=== PATIENT | female | born 1960 | race African-American/Black ===

== ENCOUNTER 2020-01-20 07:44 | Inpatient (IN) | payer BC, OTHER ==
[~2020-01-20] VITALS: Ht 170.2 cm; Wt 134.3 kg
--- NOTE | 2020-01-20 07:44 | NUR ---
PT BIB SELF C/O SOB, 02 SAT 78% ON RA. PT IS AAXO4, NOTED RESPIRATORY DISTRESS, HOOKED TO 02 VIA NC AT 3LPM AND STEM SIZER, KEPT RESTED AND COMFORTABLE, WILL CONTINUE TO MONITOR.
--- NOTE | 2020-01-20 07:45 | NUR ---
SEEN AND EXAMINED BY .
[2020-01-20] MEDS ORDERED: methylPREDNISolone SOD SUCC 125 MG/2ML VIAL ONE (07:49)
[2020-01-20] MEDS ORDERED: Magnesium 1GM/D5W 100ML PREMIX 200 ML IV ONE ×2 (07:49→07:57)
--- NOTE | 2020-01-20 07:50 | NUR ---
IV LINE ESTABLISHED L AC G18.
[2020-01-20] MEDS ORDERED: ALBUTEROL FS 2.5 MG/3 ML VIAL.NEB ONE ×2 (07:51→09:08)
[2020-01-20] MEDS ORDERED: IPRATROPIUM NEB FS 0.5 MG/2.5 ML AMPUL.NEB ONE ×2 (07:52→09:08)
--- NOTE | 2020-01-20 07:55 | NUR ---
RT AT BEDSIDE FOR BREATHING TREATMENT.
[2020-01-20] MEDS ORDERED: IPRATROPIUM NEB FS 0.5 MG/2.5 ML AMPUL.NEB NEB ONE ×2 (08:00→10:30)
[2020-01-20] MEDS ORDERED: methylPREDNISolone SOD SUCC 125 MG/2ML VIAL IV ONE (08:00)
[2020-01-20] MEDS ORDERED: ALBUTEROL FS 2.5 MG/3 ML VIAL.NEB CONTNEB ONE ×2 (08:00→10:30)
--- NOTE | 2020-01-20 08:07 | NUR ---
ER PHLEB AT BEDSIDE FOR BLOOD DRAW.
--- NOTE | 2020-01-20 08:15 | NUR ---
RADIO PROGRAM CHECKER AT BEDSIDE FOR XRAY.
[2020-01-20 08:35] LABS: BASOPHILS # (AUTO) 0.1 /CMM (0.0-0.2); BASOPHILS % (AUTO) 0.7 % (0.0-2.0); EOSINOPHILS % (AUTO) 2.2 % (0.0-6.0); HEMATOCRIT 43 % (33-45); HEMOGLOBIN 13.8 g/dL (11.5-14.8); LYMPHOCYTES % (AUTO) 23.1 % (20.0-44.0); MEAN CORPUSCULAR HGB CONC 32 g/dl (31.0-36.0); MEAN CORPUSCULAR VOLUME 93 fL (82-100); MONOCYTES # (AUTO) 0.7 /CMM (0.1-1.30); MONOCYTES % (AUTO) 8.6 % (2.0-12.0); NEUTROPHILS # (AUTO) 5.6 /CMM (1.8-8.9); NEUTROPHILS % (AUTO) 65.4 % (43.0-81.0); PLATELET COUNT (AUTO) 202 /CMM (150-450); RED BLOOD CELL COUNT(AUTO) 4.57 MIL/uL (4.0-5.2); WHITE BLOOD COUNT (AUTO) 8.6 K/uL (4.3-11.0)
--- NOTE | 2020-01-20 08:35 | NUR ---
RAPID INFLUENZA AND COVID SWAB OBTAINED AND SENT TO LAB
[2020-01-20 08:40] LABS: CALCIUM, SERUM 9.3 mg/dL (8.5-10.1); CARBON DIOXIDE 25 mmol/L (21-32); CHLORIDE 102 mmol/L (98-107); CREATININE 1.1 mg/dL (0.6-1.3); GLUCOSE 141 mg/dL (74-106); POTASSIUM 4.1 mmol/L (3.5-5.1); SODIUM SERUM 138 mmol/L (136-145); UREA NITROGEN, BLOOD 10 mg/dL (7-18)
[2020-01-20 08:45] LABS: ALANINE AMINOTRANSFERASE 22 U/L (12-78); ALBUMIN 3.8 g/dL (3.4-5.0); ALKALINE PHOSPHATASE 73 U/L (46-116); ASPARTATE AMINOTRANSFERASE 24 U/L (15-37); BILIRUBIN,DIRECT 0.1 mg/dL (0.0-0.2); BILIRUBIN,TOTAL 0.6 mg/dL (0.2-1.0); TOTAL PROTEIN, SERUM 8.7 g/dL (6.4-8.2)
[2020-01-20] MEDS ORDERED: TERBUTALINE SULFATE 1 MG/ML VIAL ONE (08:48)
[2020-01-20] MEDS ORDERED: TERBUTALINE SULFATE 1 MG/ML VIAL SQ ONE (09:00)
--- NOTE | 2020-01-20 09:50 | NUR ---
REPORT GIVEN TO MAYANK KELLOGG FOR [facility].
--- NOTE | 2020-01-20 10:28 | NUR ---
Malorie kessler in [facility] - 01/20/20 at 1029 by AMARA CHANTEL QUIROZ AT BEDSIDE FOR EVAL.
[2020-01-20] MEDS ORDERED: IV NS 0.9% 1,000 ML BAG IV ONE (10:30)
[2020-01-20 12:00] VITALS: BP 126/68
[2020-01-20] MEDS: PANTOPRAZOLE 40 MG VIAL IV SCH (12:25)
[2020-01-20] MEDS: ENOXAPARIN SODIUM 40 MG/0.4 ML DISP.SYRIN SQ SCH (12:26)
[2020-01-20] MEDS ORDERED: IPRATROPIUM BROMIDE 14 GM INHALER (or 12.9 GM) IH PRN (12:30)
[2020-01-20] MEDS ORDERED: ALBUTEROL SULFATE 8 GM HFA.AER.AD IH PRN (12:30)
[2020-01-20] MEDS ORDERED: TEMAZEPAM 15 MG CAPSULE PO PRN (13:00)
[2020-01-20] MEDS: CEFTRIAXONE 1 G in IV D5W 50 ML IV SCH (13:18)
[2020-01-20] MEDS ORDERED: LOSA100T31 PO (14:03)
[2020-01-20] MEDS ORDERED: METO25TA20 PO (14:03)
[2020-01-20] MEDS ORDERED: METF-440 PO (14:03)
--- NOTE | 2020-01-20 14:59 | NUR ---
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 Yo Valencia RN
[2020-01-20] MEDS: methylPREDNISolone SOD SUCC 40 MG/ML VIAL IV SCH ×2 (15:02→23:56)
[2020-01-20 16:00] VITALS: BP 129/67
[2020-01-20] MEDS: ALBUTEROL SULFATE 8 GM HFA.AER.AD IH SCH ×2 (17:24→23:56)
[2020-01-20] MEDS: IPRATROPIUM BROMIDE 14 GM INHALER (or 12.9 GM) IH SCH ×2 (17:25→23:39)
[2020-01-20 20:00] VITALS: BP 140/93
[2020-01-20] MEDS: METOPROLOL TARTRATE 25 MG TABLET PO SCH (21:04)
[2020-01-21] VITALS: BP 141/78
[2020-01-21 04:00] VITALS: BP 147/98
[2020-01-21] MEDS: ALBUTEROL SULFATE 8 GM HFA.AER.AD IH SCH ×4 (05:41→23:08)
[2020-01-21] MEDS: IPRATROPIUM BROMIDE 14 GM INHALER (or 12.9 GM) IH SCH ×4 (05:41→23:12)
[2020-01-21 06:48] LABS: BASOPHILS % (AUTO) 0.1 % (0.0-2.0); EOSINOPHILS % (AUTO) 0.1 % (0.0-6.0); HEMATOCRIT 38 % (33-45); HEMOGLOBIN 12.5 g/dL (11.5-14.8); LYMPHOCYTES # (AUTO) 0.7 /CMM (0.8-4.8); MEAN CORPUSCULAR HGB CONC 33 g/dl (31.0-36.0); MEAN CORPUSCULAR VOLUME 90 fL (82-100); MONOCYTES # (AUTO) 0.4 /CMM (0.1-1.30); MONOCYTES % (AUTO) 2.4 % (2.0-12.0); NEUTROPHILS # (AUTO) 13.7 /CMM (1.8-8.9); NEUTROPHILS % (AUTO) 92.4 % (43.0-81.0); PLATELET COUNT (AUTO) 212 /CMM (150-450); RED BLOOD CELL COUNT(AUTO) 4.22 MIL/uL (4.0-5.2); WHITE BLOOD COUNT (AUTO) 14.8 K/uL (4.3-11.0)
[2020-01-21 06:50] LABS: CALCIUM, SERUM 9.6 mg/dL (8.5-10.1); MAGNESIUM 2.1 mg/dL (1.8-2.4); POTASSIUM 4.7 mmol/L (3.5-5.1)
--- NOTE | 2020-01-21 07:20 | NUR ---
RN opening note: Patient received in bed. Awake, alert and oriented x4. Able to make needs known. On contact isolation for R/O Covid with Shortness of Breath noted but not in respiratory distress. Patient with hx of asthma and dx of asthma exacerbation. On cont. o2 via NC @ 4lpm at 96%. Tele monitoring showing sinus rhythm. No pain reported by patient. IV site clean, dry, patent and intact. call light in reach. Bed locked, low and at semi-vang's position. side rails up x3. safety ensured and observed. will continue to monitor.
[2020-01-21 08:00] VITALS: BP 118/72
[2020-01-21] MEDS: PANTOPRAZOLE 40 MG VIAL IV SCH (08:45)
[2020-01-21] MEDS: methylPREDNISolone SOD SUCC 40 MG/ML VIAL IV SCH ×3 (08:45→23:02)
[2020-01-21] MEDS: METOPROLOL TARTRATE 25 MG TABLET PO SCH (09:05)
[2020-01-21] MEDS: ENOXAPARIN SODIUM 40 MG/0.4 ML DISP.SYRIN SQ SCH (09:07)
--- NOTE | 2020-01-21 09:30 | NUR ---
rn note: patient still on cont. o2 via nc @ 96% with no respiratory distress noted.
[2020-01-21] MEDS: IV NS 0.9% 1,000 ML IV PRN (10:45)
[2020-01-21 11:06] LABS: THYROID STIMULATING HORMONE 0.972 uIU/mL (0.358-3.74)
[2020-01-21 12:00] VITALS: BP 128/66
[2020-01-21] MEDS: CEFTRIAXONE 1 G in IV D5W 50 ML IV SCH (13:34)
[2020-01-21 16:00] VITALS: BP 137/87
--- NOTE | 2020-01-21 19:00 | NUR ---
RN CLOSING NOTE: Patient still in bed. Awake, alert and oriented x4. Able to make needs known. Appears relaxed and calm. Patient with hx of asthma and dx of asthma exacerbation. On cont. o2 via NC @ 4lpm at 99% being tolerated well. Tele monitoring showing sinus rhythm. No pain reported by patient. IV site clean, dry, patent and intact. Call light in reach. Bed locked, low and at semi-vang's position. side rails up x3. safety ensured and observed. Endorsed to oncoming shift for [facility]ULU.
--- NOTE | 2020-01-21 19:15 | NUR ---
client relations representative opening notes Received Pt from morning nurse. Pt is alert and orientedX4. Pt is sitting in bed comfortably watching TV. Respiration is normal in 2 L NC. O2 sat is 98%. Tele monitor showed SR HR @ 70 bpm. IV sites at R Hand# 20 is clean, intact, patent and infusing well NS@ 70 ml/hr. Safety precautions is maintained. Bed at low position, brakes locked, side railsupX2, HOB elevated and call light is within reach. Will Continue to monitor.
[2020-01-21 20:00] VITALS: BP_SYST 146; BP_DIAS 83; BP_DIAS 93
--- NOTE | 2020-01-21 20:31 | NUR ---
admission nurse coordinator notes Pt is complaining of headache. Informed and contacted Dr. Yuen. order tylenol 650 mg/po/Q6/PRN for headache and mild pain. BP 146/83 pulse 67. Order carried out. Charge nurse is aware and informed.
--- NOTE | 2020-01-21 20:41 | NUR ---
sensor operator notes Pt is complaining of headache. Administered tylenol 650 mg/po/prn for headache as ordered. Will continue to monitor.
[2020-01-21] MEDS ORDERED: ACETAMINOPHEN 325 MG TABLET PO PRN (21:00)
[2020-01-22] VITALS (8 sets, daily range): BP systolic 136–155; BP diastolic 72–97
--- NOTE | 2020-01-22 00:20 | NUR ---
epic anesthesia analyst notes Report given to MAYANK Weir.
--- NOTE | 2020-01-22 00:30 | NUR ---
facilities maintenance assistant notes Transferred Pt to room 306-2 with ACLS protocol.
--- NOTE | 2020-01-22 00:34 | NUR ---
PATIENT ARRIVED FROM [facility], AWAKE A/O X4, NO COMPLAIN OF PAIN. NO SOB NOTED. HOB ELEVATED AT 30 DEGREES AT ALL TIMES. CALL LIGHT WITHIN REACH. BED IN LOWEST AND LOCKED POSITION. WITH O2 AT 4L/MIN.
[2020-01-22] MEDS: IV NS 0.9% 1,000 ML IV PRN (05:34)
[2020-01-22] MEDS: IPRATROPIUM BROMIDE 14 GM INHALER (or 12.9 GM) IH SCH (05:35)
[2020-01-22] MEDS: ALBUTEROL SULFATE 8 GM HFA.AER.AD IH SCH (05:35)
--- NOTE | 2020-01-22 06:30 | NUR ---
RN CLOSING NOTES: PATIENT AMBULATED TO THE BATHROOM,STEADY. NO COMPLAIN OF SOB AND PAIN. RESTED THROUGHOUT THE NIGHT. CALL LIGHT WITHIN REACH. BED IN LOWEST AND LOCKED POSITION.
--- NOTE | 2020-01-22 07:30 | NUR ---
Tele/RN Opening note Received patient in bed, AO x 4, able to responds all stimuli. Pt does no complain of pain or any discomfort, skin is warm to touch, kept clean/dry, intact IV site. Respiratory even and unlabored with oxygen at 4LPM, O2sat 96%. Keep lower position of the bed with locked wheel and elevated HOB. Call light within reach. Will continue to monitor.
[2020-01-22 08:06] LABS: *SPE A/G RATIO 0.7 (0.7-1.7); *SPE ALPHA-1-GLOBULIN 0.2 g/dL (0.0-0.4); *SPE ALPHA-2-GLOBULIN 0.8 g/dL (0.4-1.0); *SPE BETA GLOBULIN 1.4 g/dL (0.7-1.3); *SPE GLOBULIN, TOTAL 4.4 g/dL (2.2-3.9); *SPE M-SPIKE Not Observed g/dL (Not Observed)
[2020-01-22] MEDS: methylPREDNISolone SOD SUCC 40 MG/ML VIAL IV SCH ×2 (08:31→21:58)
[2020-01-22] MEDS: PANTOPRAZOLE 40 MG VIAL IV SCH (08:31)
[2020-01-22] MEDS: ENOXAPARIN SODIUM 40 MG/0.4 ML DISP.SYRIN SQ SCH (08:31)
[2020-01-22 08:47] LABS: ALBUMIN 3.2 g/dL (3.4-5.0); BILIRUBIN,TOTAL 0.5 mg/dL (0.2-1.0); CREATININE 1.2 mg/dL (0.6-1.3); MAGNESIUM 2.3 mg/dL (1.8-2.4); PHOSPHORUS 3.2 mg/dL (2.5-4.9); POTASSIUM 4.5 mmol/L (3.5-5.1); TOTAL PROTEIN, SERUM 7.7 g/dL (6.4-8.2)
[2020-01-22 09:01] LABS: BASOPHILS # (AUTO) 0.1 /CMM (0.0-0.2); BASOPHILS % (AUTO) 0.3 % (0.0-2.0); HEMATOCRIT 39 % (33-45); HEMOGLOBIN 12.3 g/dL (11.5-14.8); LYMPHOCYTES # (AUTO) 0.8 /CMM (0.8-4.8); LYMPHOCYTES % (AUTO) 4.5 % (20.0-44.0); MEAN CORPUSCULAR HGB CONC 32 g/dl (31.0-36.0); MEAN CORPUSCULAR VOLUME 91 fL (82-100); MONOCYTES # (AUTO) 0.5 /CMM (0.1-1.30); MONOCYTES % (AUTO) 2.5 % (2.0-12.0); NEUTROPHILS % (AUTO) 92.7 % (43.0-81.0); PLATELET COUNT (AUTO) 212 /CMM (150-450); RED BLOOD CELL COUNT(AUTO) 4.23 MIL/uL (4.0-5.2); WHITE BLOOD COUNT (AUTO) 18.3 K/uL (4.3-11.0)
[2020-01-22] MEDS: PANTOPRAZOLE 40 MG TABLET.DR PO SCH (11:24)
[2020-01-22] MEDS: DILTIAZEM HCL CD 240 MG PO SCH (11:25)
[2020-01-22] MEDS ORDERED: FUROSEMIDE 20 MG/2 ML VIAL IV ONE (13:00)
[2020-01-22] MEDS: CEFTRIAXONE 1 G in IV D5W 50 ML IV SCH (13:10)
[2020-01-22] MEDS ORDERED: IPRATROPIUM NEB FS 0.5 MG/2.5 ML AMPUL.NEB NEB PRN (14:30)
[2020-01-22] MEDS ORDERED: ALBUTEROL FS 2.5 MG/3 ML VIAL.NEB NEB PRN (14:30)
--- NOTE | 2020-01-22 18:30 | NUR ---
Tele/RN Closing note Patient sitting the chair watching TV, does no c/o pain, but consider about inhaler, explained pharmacy bring at 1930. Skin is warm to touch, kept clean/dry, intact IV site, respiratory even and unlabored at 4LPM oxygen. Call light within reach, will endorse bank boss.
--- NOTE | 2020-01-22 19:42 | NUR ---
MS RN RECEIVE PT A/O X 3, STABLE AND NOT IN DISTRESS, RESPIRATIONS EVEN AND UNLABORED. SAFETY MEASURES AT ALL TIMES. WILL CONT TO MONITOR
--- NOTE | 2020-01-22 22:00 | NUR ---
MS RN PT C/O UPSET PT LOOKING FOR HER INHALERS, PER PT DAY SHIFT RN TOOK IT OUT FROM HER BEDSIDE. CHARGE NURSE AWARE. EXPLAINED ITS DC'D. VERBALIZED UNDERSTANDING PTS WANTS HER BREATHING TREATMENT
[2020-01-23] MEDS: ALBUTEROL FS 2.5 MG/3 ML VIAL.NEB NEB SCH ×3 (01:51→12:16)
[2020-01-23] MEDS: IPRATROPIUM NEB FS 0.5 MG/2.5 ML AMPUL.NEB NEB SCH ×3 (01:51→12:16)
[2020-01-23 05:59] LABS: CALCIUM, SERUM 8.9 mg/dL (8.5-10.1); CREATININE 1.1 mg/dL (0.6-1.3); POTASSIUM 4.3 mmol/L (3.5-5.1)
--- NOTE | 2020-01-23 06:12 | NUR ---
MS RN NO SIGNIFICANT CHANGES, PT SLEPT WELL, ALL NEEDS ATTENDED AND ANTICIPATED, KEPT CLEAN DRY AND COMFORTABLE. SAFETY MEASURES AT ALL TIMES. WILL ENDORSE NEXT SHIFT PLAN OF CARE. O2 SAT WNL. MONITORED ACCORDINGLY.
[2020-01-23 06:30] LABS: BASOPHILS % (AUTO) 0.2 % (0.0-2.0); HEMATOCRIT 38 % (33-45); HEMOGLOBIN 12.3 g/dL (11.5-14.8); LYMPHOCYTES # (AUTO) 0.6 /CMM (0.8-4.8); LYMPHOCYTES % (AUTO) 4.1 % (20.0-44.0); MEAN CORPUSCULAR HGB CONC 32 g/dl (31.0-36.0); MEAN CORPUSCULAR VOLUME 92 fL (82-100); MONOCYTES # (AUTO) 0.4 /CMM (0.1-1.30); MONOCYTES % (AUTO) 2.9 % (2.0-12.0); NEUTROPHILS # (AUTO) 12.8 /CMM (1.8-8.9); NEUTROPHILS % (AUTO) 92.8 % (43.0-81.0); PLATELET COUNT (AUTO) 218 /CMM (150-450); RED BLOOD CELL COUNT(AUTO) 4.16 MIL/uL (4.0-5.2); WHITE BLOOD COUNT (AUTO) 13.8 K/uL (4.3-11.0)
[2020-01-23 08:00] VITALS: BP 126/64
--- NOTE | 2020-01-23 08:00 | NUR ---
MS RN NOTES PATIENT IN BED RESTING NO SOB OR ACUTE DISTRESS NOTED. PATIENT ALERT, ORIENTED X4. DENIES ANY PAIN OR DISCOMFORT. PERIPHERAL IV INTACT PATENT. BED IN LOW LOCKED POSITION. CALL LIGHT WITHIN REACH. WILL CONTINUE TO MONITOR.
[2020-01-23 08:07] VITALS: BP 126/64
[2020-01-23] MEDS: PANTOPRAZOLE 40 MG TABLET.DR PO SCH (08:07)
[2020-01-23] MEDS: DILTIAZEM HCL CD 240 MG PO SCH (08:07)
[2020-01-23] MEDS: methylPREDNISolone SOD SUCC 40 MG/ML VIAL IV SCH (08:07)
[2020-01-23] MEDS: ENOXAPARIN SODIUM 40 MG/0.4 ML DISP.SYRIN SQ SCH (08:14)
--- NOTE | 2020-01-23 10:00 | NUR ---
MS RN NOTES PATIENT WAS SEEN AND EVALUATED BY MD ORDERS TO DISCHARGE WHEN READY. ORDERS NOTED AND CARRIED OUT.
[2020-01-23] MEDS ORDERED: FLUT12AE15 IH (11:02)
[2020-01-23] MEDS ORDERED: METH4TAB17 PO (11:02)
[2020-01-23] MEDS ORDERED: ALBU8.5H8 INH (11:02)
[2020-01-23] MEDS ORDERED: AMOX-430 PO (11:02)
--- NOTE | 2020-01-23 12:00 | NUR ---
MS RN NOTES DISCHARGE INSTRUCTIONS PROVIDED TO PATIENT VERBALIZED UNDERSTANDING. BELONGING LIST SIGNED. ALL BELONGING PRESENT. PATIENT WAITING FOR TRANSPORTATION.
--- NOTE | 2020-01-23 12:42 | NUR ---
MS RN NOTES PATIENT DISCHARGED HOME IN STABLE CONDITION. MD AWARE OF LABS AND ALL TESTS. PRESCRIPTION PROVIDED TO PATIENT. ALL DISCHARGE TEACHING PROVIDED. VERBALIZED UNDERSTANDING. PERIPHERAL IV REMOVED WITH MINIMAL BLEEDING. ID BAND REMOVED. DISCHARGE PROTOCOL FOLLOWED. ESCORTED PATIENT TO CAR.
== END 2020-01-23 12:42 | disposition home or self-care (01) | DRG 133 ==
LOC: ER 07:44 → TELE-TD 10:24 → TELE1 14:17 → TELE 01-22 00:49 → MED 01-22 14:06
PROVIDERS: ADMIT Legal Medicine; ATTEND Legal Medicine
DX: J96.01 Acute respiratory failure with hypoxia (principal); E87.2 Acidosis; J45.901 Unspecified asthma with (acute) exacerbation; E66.01 Morbid (severe) obesity due to excess calories; I50.32 Chronic diastolic (congestive) heart failure; I11.0 Hypertensive heart disease with heart failure; J20.9 Acute bronchitis, unspecified; K21.9 Gastro-esophageal reflux disease without esophagitis; Z68.37 Body mass index [BMI] 37.0-37.9, adult; M19.90 Unspecified osteoarthritis, unspecified site; J30.9 Allergic rhinitis, unspecified; E11.9 Type 2 diabetes mellitus without complications; Z79.84 Long term (current) use of oral hypoglycemic drugs; E86.0 Dehydration; I70.0 Atherosclerosis of aorta
CPT/HCPCS: 36415; 71045-TC; 80048-TC; 80053-TC; 80076-TC; 82550-TC; 82728-TC; 83540-TC; 83605-TC; 83615-TC; 83735-TC; 83880; 84100-TC; 84155; 84165; 84439-TC; 84443-TC; 84484-TC; 85025-TC; 86140-TC; 87040-TC; 87081-TC; 93307-TC; 97116-TC; 97530-TC; C1751; C9113; G0378; J0696; J1650; J1940; J2920; J2930; J3105; J3475; J3490; J7030; J7040; J7060

== ENCOUNTER 2022-12-25 17:57 | Emergency (ER) | payer OTHER ==
[~2022-12-25] VITALS: Ht 172.7 cm; Wt 121.6 kg
[~2022-12-25 17:57] MED LIST: LOSA100T31 PO; METF-440 PO; METO25TA20 PO
[2022-12-25 18:40] VITALS: BP 136/90
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
== END 2022-12-25 20:16 | disposition home or self-care (01) ==
LOC: ER 18:03
DX: S33.5XXA Sprain of ligaments of lumbar spine, initial encounter (principal); S46.912A Strain of unspecified muscle, fascia and tendon at shoulder and upper arm level, left arm, initial encounter; S46.911A Strain of unspecified muscle, fascia and tendon at shoulder and upper arm level, right arm, initial encounter; S09.90XA Unspecified injury of head, initial encounter; E66.01 Morbid (severe) obesity due to excess calories; Z79.899 Other long term (current) drug therapy; Z68.42 Body mass index [BMI] 45.0-49.9, adult; V49.9XXA Car occupant (driver) (passenger) injured in unspecified traffic accident, initial encounter; Y93.89 Activity, other specified; Y92.89 Other specified places as the place of occurrence of the external cause; Y99.8 Other external cause status
CPT/HCPCS: 70450-TC; 72131-TC